=== PATIENT | male | born 1980 | race Caucasian/White ===

== ENCOUNTER 2019-08-12 09:56 | Emergency (ER) | payer OTHER ==
[~2019-08-12] VITALS: Ht 175.3 cm; Wt 99.8 kg
[~2019-08-12 09:56] MED LIST: CIPROFLOXACIN500 M1 PO; HYDROCODONE-APA1 TA1 PO; KETOCONAZOLE60 GM TP
[2019-08-12] MEDS ORDERED: KEFLEX500 M1 PO (11:06)
[2019-08-12 11:16] VITALS: BP 122/77
== END 2019-08-12 11:17 | disposition home or self-care (01) ==
LOC: M.ERS 09:56
DX: L03.012 Cellulitis of left finger (principal); F17.210 Nicotine dependence, cigarettes, uncomplicated; Z86.14 Personal history of Methicillin resistant Staphylococcus aureus infection